=== PATIENT | female | born 1980 | race African-American/Black ===

== ENCOUNTER 2017-04-16 07:27 | Day surgery (SDC) | payer OTHER ==
[2017-04-11 14:05] VITALS: BMI 48.2
[2017-04-16] MEDS ORDERED: IBUPROFEN 400 MG TABLET (FP) PO PRN (08:06)
[2017-04-16] MEDS ORDERED: ACETAMINOPHEN 325 MG TABLET (FP) PO PRN (08:06)
--- NOTE | 2017-04-16 08:06 | HP ---
History & Physical Update - History History: No Change - Physical Physical: No Change - Assessment Assessment: No Change - Plan Plan: No Change
--- NOTE | 2017-04-16 08:08 | OP ---
Operative Note - Note: Operative Date: 04/16/17 Pre-Operative Diagnosis: Endometrial polyp Operation: Hysteroscopic myomectomy. Suction DC Post-Operative Diagnosis: Same as Pre-op Surgeon: Jodie Ponce Anesthesia: General
[2017-04-16] MEDS ORDERED: DEXAMETHASONE SOD PHOSPHATE 4 MG/1 ML VIAL ONE ×2 (08:35→09:22)
[2017-04-16] MEDS ORDERED: LIDOCAINE HCL/PF 2% SDV 5ML VIAL ONE ×2 (08:35→09:28)
[2017-04-16] MEDS ORDERED: ONDANSETRON 4 MG/2 ML VIAL IVPUSH PRN (09:02)
[2017-04-16] MEDS ORDERED: MIDAZOLAM HCL 2 MG/2 ML SINGLE DOSE VIAL ONE (09:11)
[2017-04-16] MEDS ORDERED: LACTATED RINGERS SOLUTION 1,000 ML IV SCH (09:15)
[2017-04-16] MEDS ORDERED: KETOROLAC TROMETHAMINE 30 MG/1 ML VIAL ONE (09:22)
[2017-04-16] MEDS ORDERED: PROPOFOL 20 ML ONE ×3 (09:22→09:49)
[2017-04-16] MEDS ORDERED: NEOSTIGMINE METHYLSULFATE 0.5 MG/ML - 10 ML MDV ONE (09:31)
[2017-04-16] MEDS ORDERED: GLYCOPYRROLATE 0.2 MG/1 ML VIAL ONE (09:31)
[2017-04-16 10:56] VITALS: TEMP 97.9
[2017-04-16 12:38] VITALS: BP 104/69; PULSE 68
--- NOTE | 2017-04-16 19:41 | OP ---
DATE OF OPERATION: 04/16/2017 PREOPERATIVE DIAGNOSES: Endometrial polyps, abnormal uterine bleeding. OPERATION: Hysteroscopic myomectomy and suction dilatation and curettage. POSTOPERATIVE DIAGNOSES: endometrial polyps, abnormal uterine bleeding, and submucosal myoma. SURGEON: Jodie Ponce MD ANESTHESIA: General. DESCRIPTION OF PROCEDURE: Patient was taken to the operating room, placed in dorsal lithotomy position, prepped and draped in the usual sterile fashion. A timeout was performed in accordance with hospital regulation. Speculum was placed in the vagina. Anterior lip of the cervix grasped with single-tooth tenaculum. Cervix then dilated to accommodate the operative hysteroscope. Hysteroscope was inserted, and numerous endometrial polyps were seen. Also, a submucosal myoma was seen. Cutting and cautery of the submucosal myoma was done. Specimen was submitted to Pathology. Suction D&C was performed to remove all contents of the submucosal myoma. Hemostasis was achieved. Estimated blood loss: 20 mL. After all instruments were removed. JODIE PONCE M.D. [id number]
--- NOTE | 2017-04-17 18:43 | PATH ---
Surgical Pathology Report Patient Name: MICHELLE PALMER [facility]. Rec. #: [id number] /Age/Gender: 1980 (Age: 37) / F Account: [id number] Location: [facility] SURGICAL Taken: 04/16/2017 Received: 04/16/2017 Reported: 04/17/2017 Physicians: Jodie Ponce M.D. Specimen(s) Received SUBMUCOSAL MOYOMA Clinical History Endometrial polyp Final Diagnosis UTERUS, SUCTION DILATATION AND CURETTAGE: ENDOMETRIAL POLYP, SUPERFICIAL MYOMETRIUM, SECRETORY ENDOMETRIUM, AND BENIGN EXOCERVICAL TISSUE. Electronically Signed Shantell Lewis M.D. Gross Description Received in formalin labeled "submucosal myoma," is a 2 g, 2.8 x 2.3 x 0.3 cm aggregate of cartagena-pink soft tissue fragments. The formalin is filtered and the specimen is entirely submitted in one cassette. 04/16/201704/16/2017
== END 2017-04-16 12:20 | disposition home or self-care (01) ==
LOC: JASU-SURG 07:27
PROVIDERS: ATTEND Obstetrics & Gynecology
PROC: 0UB98ZZ Excision of Uterus, Via Natural or Artificial Opening Endoscopic (ICD-10-PCS; principal; 2017-04-16 09:00)
PROC: 0UDB8ZX Extraction of Endometrium, Via Natural or Artificial Opening Endoscopic, Diagnostic (ICD-10-PCS; 2017-04-16 09:00)
DX: N84.0 Polyp of corpus uteri (principal); D25.0 Submucous leiomyoma of uterus; N93.9 Abnormal uterine and vaginal bleeding, unspecified
CPT/HCPCS: 84703; 88305-TC; 94760

== ENCOUNTER 2018-02-12 09:19 | Day surgery (SDC) | payer OTHER ==
[2018-02-12 10:03] VITALS: BMI 49.7
[2018-02-12 10:52] VITALS: TEMP 97.5
[2018-02-12 11:45] VITALS: BP 111/81; PULSE 65
--- NOTE | 2018-02-15 14:25 | PATH ---
Surgical Pathology Report Patient Name: MICHELLE PALMER [facility]. Rec. #: [id number] /Age/Gender: 1980 (Age: 37) / F Account: [id number] Location: [facility]-ENDOSCOPY Taken: 02/12/2018 Received: 02/12/2018 Reported: 02/13/2018 Physicians: Don Luo D.O. Specimen(s) Received A: BX DUODENUM B: BX PYLORUS C: BX BODY AND ANGULARIS Clinical History Nausea, vomiting Postoperative diagnosis: Gastritis Final Diagnosis A. DUODENUM, BIOPSY: DUODENUM MUCOSA WITH NO DIAGNOSTIC ABNORMALITIES. NO HISTOLOGIC EVIDENCE OF CELIAC DISEASE. B. PYLORUS, BIOPSY: GASTRIC MUCOSA WITH REACTIVE GASTROPATHY. IMMUNOSTAIN FOR H. PYLORI IS NEGATIVE. NEGATIVE FOR INTESTINAL METAPLASIA. C. BODY AND ANGULARIS, BIOPSY: GASTRIC MUCOSA WITH FOCAL REACTIVE GASTROPATHY. IMMUNOSTAIN FOR H. PYLORI IS NEGATIVE. NEGATIVE FOR INTESTINAL METAPLASIA. Electronically Signed Vandana Garcia M.D. Gross Description A. Received in formalin, labeled "duodenum" are 4 cartagena, irregular portions of soft tissue ranging from 0.1-0.3 cm. in greatest dimension. The specimens are submitted in toto in one cassette. B. Received in formalin, labeled "pylorus" is a cartagnea, irregular portion of soft tissue measuring 0.4 cm. in greatest dimension. The specimen is submitted in toto in one cassette. C. Received in formalin, labeled "body and angularis" are 3 cartagena, irregular portions of soft tissue ranging from 0.2-0.3 cm. in greatest dimension. The specimens are submitted in toto in one cassette. 02/12/2018 saudi02/12/2018
== END 2018-02-12 11:40 | disposition home or self-care (01) ==
LOC: JASU-ENDO 09:19
PROVIDERS: ATTEND Internal Medicine Gastroenterology
PROC: 0DB68ZX Excision of Stomach, Via Natural or Artificial Opening Endoscopic, Diagnostic (ICD-10-PCS; 2018-02-12)
PROC: 0DB98ZX Excision of Duodenum, Via Natural or Artificial Opening Endoscopic, Diagnostic (ICD-10-PCS; principal; 2018-02-12 10:00)
DX: R11.0 Nausea (principal)
CPT/HCPCS: 84703; 88305-TC; 88342-TC

== ENCOUNTER 2018-02-28 12:51 | Day surgery (SDC) | payer OTHER ==
[2018-02-27 12:39] VITALS: BMI 49.7
[2018-02-28] MEDS ORDERED: ACETAMINOPHEN 1000 MG/100 ML VIAL (NON FORMULARY) IVPB ONE (17:06)
[2018-02-28] MEDS ORDERED: DEXTROSE 5%-0.45% SALINE 1,000 ML IV SCH (17:15)
[2018-02-28] MEDS ORDERED: fentaNYL CITRATE 250 MCG/5 ML VIAL ONE (17:24)
[2018-02-28] MEDS ORDERED: PROPOFOL 20 ML ONE ×3 (17:24)
[2018-02-28] MEDS ORDERED: LIDOCAINE HCL/PF 2% SDV 5ML VIAL ONE (17:26)
[2018-02-28] MEDS ORDERED: ROCURONIUM BROMIDE 50 MG/5 ML VIAL ONE (17:26)
[2018-02-28] MEDS ORDERED: DEXAMETHASONE SOD PHOSPHATE 4 MG/1 ML VIAL ONE (17:26)
[2018-02-28] MEDS ORDERED: ceFAZolin SODIUM 1 GM VIAL ONE (17:44)
[2018-02-28] MEDS ORDERED: ceFAZolin SODIUM 1 GM VIAL IVPB ONE (17:45)
[2018-02-28] MEDS ORDERED: NEOSTIGMINE METHYLSULFATE 0.5 MG/ML - 10 ML MDV ONE (17:54)
[2018-02-28] MEDS ORDERED: GLYCOPYRROLATE 0.2 MG/1 ML VIAL ONE (17:55)
[2018-02-28] MEDS ORDERED: IBUPROFEN 800 MG/8 ML IJ IVPB SCH (18:00)
[2018-02-28] MEDS ORDERED: ONDANSETRON 4 MG/2 ML VIAL IVPUSH PRN (18:27)
[2018-02-28] MEDS ORDERED: oxyCODONE HCL 5 MG TABLET PO PRN (18:27)
[2018-02-28] MEDS ORDERED: LACTATED RINGERS SOLUTION 1,000 ML IV SCH (18:30)
[2018-02-28] MEDS ORDERED: ACETAMINOPHEN INJECTION 100 ML IVPB ONE (18:45)
[2018-02-28 19:50] VITALS: TEMP 98.4
[2018-02-28 19:54] VITALS: BP 99/63; PULSE 80
--- NOTE | 2018-03-01 14:25 | OP ---
DATE OF OPERATION: 02/28/2018 PREOPERATIVE DIAGNOSIS: Stress urinary incontinence, hypermobile urethra. POSTOPERATIVE DIAGNOSIS: Stress urinary incontinence, hypermobile urethra. PROCEDURE: Suburethral sling and cystoscopy. ESTIMATED BLOOD LOSS: Minimal. SURGEON: Tomer Adkins MD DRAINS: Cyr catheter. INDICATIONS: The patient has stress urinary incontinence by history improving on urodynamics. She also has a hypermobile urethra on exam. She comes to the OR for a sling placement. DESCRIPTION OF PROCEDURE: The patient was brought to the OR and placed on the table in a supine position and given general anesthesia and IV antibiotics and placed in a modified lithotomy position. The groin was prepped and draped sterilely, and time-out was performed. A Cyr catheter was placed along the midportion of the urethra. Pitressin was injected under the vaginal mucosa. An incision was made in the middle 1/3 of the urethra in the vaginal mucosa, and the vaginal mucosa was sharply dissected off the periurethral tissues in the lateral fashion. The bladder was emptied under suction. Using curved trocars, the mini sling was then placed with 1 pushed on the right side through the vaginal mucosa towards the obturator canal at the level of the clitoris. No evidence of perforation of the vaginal mucosa was seen. This was then similarly done on the left side. Cystoscopy was performed. No evidence of any perforation of the bladder. Both UOs were seen with clear efflux. The scope was removed. The Cyr was replaced. The sling was then tightened appropriately lying flat without tension over the midportion of the urethra. The tightening suture was then excised. The vaginal mucosa was closed with 2-0 Vicryl suture in 2 layers. Packing was left in place as well as a Cyr catheter. The patient was then woken up. Rocio [id number]
== END 2018-02-28 20:25 | disposition home or self-care (01) ==
LOC: JASU-SURG 12:51
PROVIDERS: ATTEND Urology
PROC: 0TSD0ZZ Reposition Urethra, Open Approach (ICD-10-PCS; principal; 2018-02-28 14:30)
DX: N39.3 Stress incontinence (female) (male) (principal); N36.41 Hypermobility of urethra
CPT/HCPCS: 84703; 94760; J0131

== ENCOUNTER 2019-05-07 11:02 | Emergency (ER) | payer OTHER ==
[2019-05-07 11:13] VITALS: TEMP 98; BMI 48.8
--- NOTE | 2019-05-07 11:31 | PDOC ---
History of Present Illness - General Chief Complaint: Weakness Stated Complaint: NUMBNESS TO ARM Time Seen by Provider: 05/07/19 11:21 - History of Present Illness Initial Comments: 39 05/07/19 11:30 Past History - Past Medical History Allergies/Adverse Reactions: Allergies Allergy/AdvReac Type Severity Reaction Status Date / Time morphine Allergy Severe Verified 02/28/18 13:47 Home Medications: Ambulatory Orders Ibuprofen [Motrin -] 800 mg PO QID PRN 02/07/18 Meloxicam 7.5 mg PO DAILY 02/12/18 Ranitidine [Zantac -] 150 mg PO BID 02/12/18 Acetaminophen 500 mg PO PRN 02/27/18 Cefuroxime Axetil [Ceftin -] 500 mg PO Q12H #20 tablet 02/28/18 Methylprednisolone [Medrol Dose [place]] 4 mg PO ASDIR #21 tablet 05/07/19 Methylprednisolone [Medrol Dose [place]] 4 mg PO ASDIR #21 tablet 05/07/19 Anemia: No Asthma: No Cancer: No Cardiac Disorders: No CVA: No COPD: No CHF: No Dementia: No Diabetes: No GI Disorders: Yes (GERD) Disorders: No HTN: No Hypercholesterolemia: No Liver Disease: No Seizures: No Thyroid Disease: No - Surgical History Abdominal Surgery: No Appendectomy: No Cardiac Surgery: No Cholecystectomy: Yes (LAPAROSCOPIC-2002) Lung Surgery: No Neurologic Surgery: No Orthopedic Surgery: Yes (LEFT KNEE SX X2/RIGHT KNEE SX X 3/LEFT SHOULDER BICEP TENDON REPAIR) - Immunization History Immunization Up to Date: No - Psycho Social/Smoking Cessation Hx Smoking History: Never smoked Have you smoked in the past 12 months: No Information on smoking cessation initiated: No Hx Alcohol Use: No Drug/Substance Use Hx: No Substance Use Type: Alcohol, Marijuana Hx Substance Use Treatment: No *Physical Exam - Vital Signs Last Vital Signs Temp Pulse Resp BP Pulse Ox 98.0 F 68 16 99/54 L 97 05/07/19 11:07 05/07/19 11:07 05/07/19 11:07 05/07/19 11:07 05/07/19 11:07 Discharge - Discharge Information Problems reviewed: Yes Clinical Impression/Diagnosis: Carpal tunnel syndrome Qualifiers: Laterality: left Qualified Code(s): G56.02 - Carpal tunnel syndrome, left upper limb Condition: Stable - Additional Discharge Information Prescriptions: Methylprednisolone [Medrol Dose [place]] 4 mg PO ASDIR #21 tablet Methylprednisolone [Medrol Dose [place]] 4 mg PO ASDIR #21 tablet - Follow up/Referral Referrals: Melquiades Gaming MD, FAANS [Staff Physician] - Sandrita Alejandro MD [Primary Care Provider] - - Patient Discharge Instructions Patient Printed Discharge Instructions: DI for Carpal Tunnel Syndrome Additional Instructions: You came into the emergency department. A CT scan of your lower back and an MRI of your brain were negative for acute pathology. Purchase a wrist splint [id number]. Splints are usually worn at night, but they can be worn continuously. You can take ibdf-[id number] tylenol or motrin for pain. Follow the instructions on the medication bottle. Follow-up with your primary care physician this week to discuss this ED visit and to further evaluate your symptoms. Call and make an appointment in the morning. Your workup is not complete until you do so. We referred you to a neurosurgeon. Call and make an appointment in the morning. Your workup is not complete until you do so. Immediate medical attention is required if you experience: any focal numbness or weakness, coldness in the limb, or any new or concerning symptoms. If you think you are having an emergency, call for emergency medical services or present to the emergency department right away. - Post Discharge Activity Work/Back to School Note: Back to Work
--- NOTE | 2019-05-07 13:00 | PDOC ---
Documentation entered by Chloe Vargas SCRIBE, acting as scribe for Charan Watts MD. Charan Watts MD: This documentation has been prepared by the Sam maciel Xhesika, SCRIBE, under my direction and personally reviewed by me in its entirety. I confirm that the documentation accurately reflects all work, treatment, procedures, and medical decision making performed by me. Attending Attestation - Resident Resident Name: Aury Ramirezth - ED Attending Attestation I have performed the following: I have examined & evaluated the patient, The case was reviewed & discussed with the resident, I agree w/resident's findings & plan, Exceptions are as noted - HPI HPI: 05/07/19 12:35 The patient is a 39 year old female with a significant PMH of carpal tunnel ( intermittently for 10 years - follows with neurologist) who presents to the ED with L arm numbness, weakness and pain x 1day. The patient states she went to pll her sneakers yesterday, pulled it with her L hand and suddenly felt a sharp pain up to her L hand. Pt states this morning she woke up, her L hand felt numb , weak with a pins and needles sensation throughout her L arm. Patient reports L foot weakness that feels like lack of circulation. pt states she has been endorsing more frequent sebastián horses on her L foot. The patient denies shortness of breath, headache and dizziness. Denies fever, chills, cough, nausea, vomiting, diarrhea and constipation. Denies dysuria, frequency, urgency and hematuria. Allergies:morphine Social Hx: Denies current smoking, drinking, or other substance usage. PCP: Sandrita Hunter - Physicial Exam PE: 05/07/19 12:36 Vitals: Triage Vital signs reviewed General Appearance: no acute distress, well nourished well developed, Chest Wall: Nontender Cardiac: Regular rate and rhythm, no murmurs, no rubs, no gallops, Lungs: Clear to auscultation bilateral, good air movement bilaterally, Extremities: Full range of motion to all extremities, no cyanosis, clubbing, or edema Skin: Warm and dry, no rashes or lesions, no petechiae Neuro: AOX3; Cranial Nerves 2-12 grossly c intact. +L hand pain. +L hand weakness with supervisor cloth winding strength. +LLE weakness with extension at knee and flexion of foot. Normal strength at elbow and shoulder. Sensation intact to all extremities, gait normal Psych: normal mood. - Medical Decision Making 05/07/19 15:09 Exam notable for left hand pain and weakness with supervisor cloth winding strength and weakness below the left knee given these 2 disparate findings a MRI DWI protocol was ordered to rule out CVA as well as a lumbar spine Case discussed with neurology no evidence of stroke no evidence of nerve impingement We will place patient on Medrol Dosepak and have patient follow-up with neurosurgery wrist splint for likely carpal tunnel pain Findings, the need for follow-up and very strict return instructions discussed with patient. Discharge - Discharge Information Problems reviewed: Yes Clinical Impression/Diagnosis: Carpal tunnel syndrome Qualifiers: Laterality: left Qualified Code(s): G56.02 - Carpal tunnel syndrome, left upper limb Condition: Stable - Follow up/Referral Referrals: Sandrita Alejandro MD [Primary Care Provider] - Melquiades Gaming MD, FAAEMLVI [Staff Physician] - - Patient Discharge Instructions Patient Printed Discharge Instructions: DI for Carpal Tunnel Syndrome Additional Instructions: You came into the emergency department. A CT scan of your lower back and an MRI of your brain were negative for acute pathology. Purchase a wrist splint [id number]. Splints are usually worn at night, but they can be worn continuously. You can take hvsh-vym-peylhny tylenol or motrin for pain. Follow the instructions on the medication bottle. Follow-up with your primary care physician this week to discuss this ED visit and to further evaluate your symptoms. Call and make an appointment in the morning. Your workup is not complete until you do so. Follow-up with your primary care physician this week to discuss this ED visit and to further evaluate your symptoms. Call and make an appointment in the morning. Your workup is not complete until you do so. Immediate medical attention is required if you experience: any focal numbness or weakness, coldness in the limb, or any new or concerning symptoms. If you think you are having an emergency, call for emergency medical services or present to the emergency department right away. - Post Discharge Activity Work/Back to School Note: Back to Work
[2019-05-07] MEDS ORDERED: KETOROLAC TROMETHAMINE 30 MG/1 ML VIAL IM ONE (15:08)
[2019-05-07] MEDS ORDERED: DEXAMETHASONE SOD PHOSPHATE 4 MG/1 ML VIAL IM ONE (15:08)
[2019-05-07] MEDS ORDERED: DEXAMETHASONE SOD PHOSPHATE 4 MG/1 ML VIAL ONE (15:13)
[2019-05-07] MEDS ORDERED: KETOROLAC TROMETHAMINE 30 MG/1 ML VIAL ONE (15:14)
[2019-05-07 16:17] VITALS: BP 108/52; PULSE 67
== END 2019-05-07 15:50 | disposition home or self-care (01) ==
LOC: JER 11:02
PROC: 3E023GC Introduction of Other Therapeutic Substance into Muscle, Percutaneous Approach (ICD-10-PCS; principal; 2019-05-07)
PROC: 3E0233Z Introduction of Anti-inflammatory into Muscle, Percutaneous Approach (ICD-10-PCS; 2019-05-07)
DX: G56.02 Carpal tunnel syndrome, left upper limb (principal); Z88.6 Allergy status to analgesic agent; K21.9 Gastro-esophageal reflux disease without esophagitis
CPT/HCPCS: 70551-TC; 72148-TC; 99281-25